=== PATIENT | male | born 2000 | race Caucasian/White ===

== ENCOUNTER 2020-05-10 08:40 | Outpatient (CLI) | payer OTHER, SELFPAY | END 2020-05-10 08:41 | disposition home or self-care (01) | LOC: ANHCOVIDVC 08:40 | PROVIDERS: PCP Otolaryngology | DX: Z23 Encounter for immunization (principal) | CPT/HCPCS: 0001A; 91300 ==

== ENCOUNTER 2020-05-31 08:37 | Outpatient (CLI) | payer OTHER, SELFPAY | END 2020-05-31 08:38 | disposition home or self-care (01) | LOC: ANHCOVIDVC 08:37 | PROVIDERS: PCP Otolaryngology | DX: Z23 Encounter for immunization (principal) | CPT/HCPCS: 0002A; 91300 ==